=== PATIENT | female | born 1990 | race Caucasian/White ===

== ENCOUNTER 2024-10-18 19:28 | Observation (INO) | payer OTHER, SELFPAY ==
[2024-10-18 19:37] VITALS: BP 101/70; BMI 20.3
== END 2024-10-18 20:00 | disposition home or self-care (01) ==
LOC: LDRP 19:28
PROVIDERS: ADMITTING PHYSICIAN Student in an Organized Health Care Education/Training Program
DX: O26.892 Other specified pregnancy related conditions, second trimester (principal); R10.2 Pelvic and perineal pain; Z3A.22 22 weeks gestation of pregnancy; W86.0XXA Exposure to domestic wiring and appliances, initial encounter; Y93.89 Activity, other specified; Y92.009 Unspecified place in unspecified non-institutional (private) residence as the place of occurrence of the external cause
CPT/HCPCS: 76805; G0378

== ENCOUNTER 2024-10-19 12:35 | Observation (INO) | payer OTHER, SELFPAY ==
[2024-10-19 12:58] VITALS: BP 113/60; BMI 20.3
[2024-10-19 13:00] LABS: Urine Albumin Negative (Neg - Trace); Urine Bilirubin Negative (Negative); Urine Character Clear (Clear); Urine Glucose Negative (Negative); Urine Ketone Negative (Negative); Urine Leukocyte 1+ (Negative); Urine Nitrite Negative (Negative); Urine Occult Blood Negative (Negative); Urine Specific Gravity 1.005 (<1.030); Urine Urobilinogen Negative (Neg - 1+)
[2024-10-19 13:01] LABS: Urine Color Straw
[2024-10-19 13:08] LABS: Urine Red Blood Cell 0-2 /HPF (0-2); Urine White Cell 0-2 /HPF (0-5)
== END 2024-10-19 13:56 | disposition home or self-care (01) ==
LOC: LDRP 12:35
PROVIDERS: ADMITTING PHYSICIAN Obstetrics & Gynecology
DX: O26.892 Other specified pregnancy related conditions, second trimester (principal); Z3A.22 22 weeks gestation of pregnancy; N89.8 Other specified noninflammatory disorders of vagina
CPT/HCPCS: 76830; 81003; 81015; G0378

== ENCOUNTER → 2024-11-12 13:01 | Outpatient (REF) | payer OTHER, SELFPAY | LOC: RAD 13:01 | PROVIDERS: ATTENDING PHYSICIAN Obstetrics & Gynecology | DX: O22.30 Deep phlebothrombosis in pregnancy, unspecified trimester (principal) | CPT/HCPCS: 93971 ==

== ENCOUNTER 2025-02-24 07:32 | Inpatient (IN) | payer OTHER, SELFPAY ==
[2025-02-24 07:49] VITALS: BP 111/76; BMI 22.8
[2025-02-24] MEDS: LR 1000 IV ×2 (08:42→11:31)
[2025-02-24 08:56] LABS: Hematocrit 34.2 % (37.0-47.0); Hemoglobin 11.8 g/dL (12.0-16.0); Mean Corp Hgb Conc. 34.5 g/dL (33.0-37.0); Mean Corpuscular Volume 88.8 fL (81.0-99.0); Nucleated Red Blood Cells % 0 %; Platelet Count 160 10^3/uL (130-400); Red Cell Dist. Width 13.4 % (11.5-14.5)
[2025-02-24] MEDS: CYTOTEC 50 MICROGRAM PO (10:17)
[2025-02-24] MEDS: PITOCIN 30 UNITS/NSS 500 ML IV (14:05)
[2025-02-24] MEDS: PENICILLIN 110 UNITS IV (14:13)
[2025-02-24] MEDS: SUBLIMAZE 100 MCG EPIDURAL (15:35)
[2025-02-24] MEDS: FENTANYL/BUPIVACAINE 100 EPIDURAL (15:36)
[2025-02-24] MEDS: PENICILLIN 55 UNITS IV (17:56)
[2025-02-24 21:01] LABS: B.E. Cord ABG -8.0 mMOL/L; Cord ABG Comment CORD BLOOD; HCO3 Cord ABG 17.8 mmol/L; O2 Saturation % Cord ABG 75.3 %; PCO2 Cord ABG 37 mmHg; PO2 Cord ABG 38 mmHg; pH Cord ABG 7.29
[2025-02-24 21:04] LABS: B.E. Cord ABG -12.6 mMOL/L; HCO3 Cord ABG 19.5 mmol/L; O2 Saturation % Cord ABG 16.6 %; PCO2 Cord ABG 72 mmHg; PO2 Cord ABG 14 mmHg; pH Cord ABG 7.04
[2025-02-24] MEDS: MOTRIN 600 MG PO (23:24)
[2025-02-24] MEDS: TYLENOL 650 MG PO (23:24)
[2025-02-25] MEDS: TYLENOL 650 MG PO ×4 (03:11→23:29)
[2025-02-25 04:39] LABS: Hematocrit 32.3 % (37.0-47.0); Hemoglobin 11.5 g/dL (12.0-16.0)
[2025-02-25] MEDS: MOTRIN 600 MG PO ×3 (06:42→18:44)
[2025-02-25] MEDS: COLACE 100 MG PO ×2 (08:08→20:25)
[2025-02-25] MEDS: PRENATAL PLUS 1 TABLET PO (08:08)
[2025-02-25 12:56] LABS: Syphilis/T. pallidum Ab Reflex Negative (Negative)
[2025-02-26] MEDS: MOTRIN 600 MG PO ×2 (02:56→11:28)
[2025-02-26] MEDS: COLACE 100 MG PO (07:40)
[2025-02-26] MEDS: PRENATAL PLUS 1 TABLET PO (07:40)
[2025-02-26] MEDS: TYLENOL 650 MG PO (11:27)
== END 2025-02-26 15:06 | disposition home or self-care (01) | DRG 807 ==
LOC: LDRP 07:32
PROVIDERS: ADMITTING PHYSICIAN Obstetrics & Gynecology
PROC: 3E033VJ Introduction of Other Hormone into Peripheral Vein, Percutaneous Approach (ICD-10-PCS; 2025-02-24)
PROC: 3E0P7VZ Introduction of Hormone into Female Reproductive, Via Natural or Artificial Opening (ICD-10-PCS; 2025-02-24)
PROC: 10D07Z6 Extraction of Products of Conception, Vacuum, Via Natural or Artificial Opening (ICD-10-PCS; 2025-02-24)
PROC: 0KQM0ZZ Repair Perineum Muscle, Open Approach (ICD-10-PCS; 2025-02-24)
DX: O48.0 Post-term pregnancy (principal); Z37.0 Single live birth; O99.824 Streptococcus B carrier state complicating childbirth; O76 Abnormality in fetal heart rate and rhythm complicating labor and delivery; O69.1XX0 Labor and delivery complicated by cord around neck, with compression, not applicable or unspecified; Z3A.40 40 weeks gestation of pregnancy
CPT/HCPCS: 36415; 82803; 85014; 85018; 85025; 86780; 86850; 86900; 86901; 88307